=== PATIENT | female | born 1990 | race African-American/Black ===

== ENCOUNTER 2023-08-17 09:35 | Emergency (ER) | payer OTHER, MEDICAID ==
[~2023-08-17] VITALS: Ht 167.6 cm; Wt 70.0 kg
[2023-08-17 09:37] VITALS: O2SAT 100
[2023-08-17 10:56] VITALS: BP 115/83; PULSE 78; RESP 18; TEMP 98.1
== END 2023-08-17 11:04 | disposition home or self-care (01) ==
LOC: ER 09:35
DX: M54.2 Cervicalgia (principal); V98.8XXA Other specified transport accidents, initial encounter; Y93.89 Activity, other specified; Y92.89 Other specified places as the place of occurrence of the external cause; Y99.8 Other external cause status
CPT/HCPCS: 99283